=== PATIENT | female | born 1945 | race Caucasian/White ===

== ENCOUNTER 2023-12-28 10:21 | Day surgery (SDC) | payer OTHER ==
[~2023-12-28] VITALS: Ht 157.5 cm; Wt 79.9 kg
[~2023-12-28 10:21] MED LIST: AMIT50 PO; ASPI81CH PO; Balanced Salt Epinephrine Irrigation Solution 500 mL IR SCH; CENTRUM SILVER1 EAC2 PO; FentaNYL Citrate 50 MCG/ML 2 ML Injection ONE; GABA300 PO; LOSA25 PO; Lidocaine HCl/Pf 1% 5 ML VIAL XX SCH; Metoprolol Tart25 MG PO; Midazolam HCl 1MG / ML 2ML Vial ONE; Moxifloxacin HCL 0.5 MG/0.1 ML 0.4MLSYR LEFTEYE SCH; Mupirocin22 GM TOP; NEURONTIN300 MG PO; NS 500 ML IV ONE; PHENYLEPHRINE\\TROPICAMIDE\\TETRACAINE OPHTHALMIC DILATING SOLN LEFTEYE PRN; Percocet 5-3251 EACH PO; Povidone-Iodine 450 DROP/30 ML Solution LEFTEYE SCH; Povidone-Iodine 450 DROP/30 ML Solution ONE; VENL25 PO
[2023-12-28] MEDS ORDERED: JARDIANCE25 MG PO (10:41)
[2023-12-28] MEDS ORDERED: NS 500 ML IV ONE (10:45)
--- NOTE | 2023-12-28 10:46 | NUR ---
12/28/23 1046 Winifred Arora CALL LIGHT WITHIN REACH. TETRACAINE IN LEFT EYE AT 1039 AND PLEDGETT IN AT 1039
[2023-12-28] MEDS ORDERED: Tetracaine HCl 0.5% Opth Soln 15 ml LEFTEYE ONE (11:12)
[2023-12-28 11:51] VITALS: BP 128/55
== END 2023-12-28 11:56 | disposition home or self-care (01) ==
LOC: ORSCSDS 10:21
PROVIDERS: Student in an Organized Health Care Education/Training Program
PROC: 08RK3JZ Replacement of Left Lens with Synthetic Substitute, Percutaneous Approach (ICD-10-PCS; principal; 2023-12-28 11:30)
DX: E11.36 Type 2 diabetes mellitus with diabetic cataract (principal); H25.12 Age-related nuclear cataract, left eye; Z96.1 Presence of intraocular lens; I10 Essential (primary) hypertension; G47.33 Obstructive sleep apnea (adult) (pediatric); F41.9 Anxiety disorder, unspecified; F32.A Depression, unspecified; Z79.85 Long-term (current) use of injectable non-insulin antidiabetic drugs; Z79.899 Other long term (current) drug therapy
CPT/HCPCS: 82947; J2250; J3010; J7040; V2632